=== PATIENT | male | born 1985 | race Two or more races ===

== ENCOUNTER 2024-05-14 09:15 | Emergency (ER) | payer OTHER, SELFPAY ==
--- NOTE | 2024-05-14 09:35 | XR_ITS ---
Examination: Knee, left , 3 views Technique: Knee AP, lateral, oblique 3 views Date and time of exam: May 14, 2024 0940 hrs. Indications: Injury to the knee today, knee pain Findings: No fracture or dislocation No foreign body Impression: No fracture or dislocation
--- NOTE | 2024-05-14 09:36 | PD.EDLOWEX ---
Lower Extremity Injury RME/HPI General Chief Complaint: Extremity Injury, Lower Stated Complaint: Left knee injury 1 month ago Time Seen by Provider: 05/14/24 09:21 Source: patient Arrival date/time: 05/14/24 09:15 38-year-old male with no known medical history presents to the emergency room with a chief complaint of tenderness to his left knee after an injury that occurred 3 weeks ago while working out on the fires. Mode of arrival: ambulatory Limitations: no limitations Related Data Allergies Allergy/AdvReac Type Severity Reaction Status Date / Time No Known Allergies Allergy Verified 05/14/24 09:18 Review of Systems Review of Systems Systems Reviewed: All systems reviewed, normal except as documented Constitutional Constitutional: Reports system reviewed and no additional complaints, except as documented, Denies fatigue, Denies fever(s), Denies headache(s) and Denies weakness Eyes Eyes: Reports system reviewed and no additional complaints, except as documented, Denies blurry vision and Denies change in vision ENT Ears, Nose, Mouth, and Throat: Reports system reviewed and no additional complaints, except as documented, Denies otalgia, Denies headache(s), Denies nasal congestion, Denies throat swelling and Denies vertigo Cardiovascular Cardiovascular: Reports system reviewed and no additional complaints, except as documented, Denies chest pain, Denies dyspnea and Denies dyspnea on exertion Respiratory Respiratory: Reports system reviewed and no additional complaints, except as documented, Denies chest congestion, Denies cough, Denies dyspnea, Denies dyspnea on exertion and Denies wheezing Gastrointestinal Gastrointestinal: Reports system reviewed and no additional complaints, except as documented, Denies abdominal pain, Denies cramping, Denies nausea and Denies vomiting Genitourinary Genitourinary: Reports system reviewed and no additional complaints, except as documented, Denies dysuria and Denies hematuria Musculoskeletal Musculoskeletal: Reports system reviewed and no additional complaints, except as documented, Reports arthralgias, Denies back pain and Reports joint swelling Integumentary/Breasts Skin/Breast: Reports system reviewed and no additional complaints, except as documented and Denies wounds Neurologic Neurologic: Reports system reviewed and no additional complaints, except as documented, Denies confusion, Denies headache(s), Denies lack of coordination, Denies vertigo and Denies weakness Psychiatric Psychiatric: Reports system reviewed and no additional complaints, except as documented, Denies anxiety, Denies confusion, Denies depression, Denies paranoia, Denies suicidal ideation and Denies tactile hallucinations Endocrine Endocrine: Reports system reviewed and no additional complaints, except as documented and Denies fatigue Hematologic/Lymphatic Hematologic/Lymphatic: Reports system reviewed and no additional complaints, except as documented and Denies lymphadenopathy Allergic/Immunologic Allergic/Immunologic: Reports system reviewed and no additional complaints, except as documented, Denies throat swelling, Denies urticaria and Denies wheezing ED Exam General Limitations: Present no limitations General appearance: Present alert and in no apparent distress Head Head exam: Present atraumatic Eye Eye exam: Present normal appearance, PERRL and EOMI ENT ENT exam: Present normal exam, normal oropharynx and mucous membranes moist Neck Neck exam: Present normal inspection, full ROM and trachea midline Chest Chest inspection: Present normal inspection and symmetric chest wall rise Respiratory Respiratory exam: Present normal lung sounds bilaterally Cardiovascular Cardiovascular exam: Present regular rate, normal rhythm and normal heart sounds Abdominal Exam Abdominal exam: Present soft and normal bowel sounds Extremities Exam Extremities exam: Present normal inspection and full ROM Expanded Lower Extremity Exam Hip/Pelvis exam: Present normal inspection Upper leg exam: Present normal inspection Knee exam: Present tenderness, swelling, effusion, pain with valgus and pain with varus; Absent full ROM Lower leg exam: Present normal inspection Ankle exam: Present normal inspection Foot/toe exam: Present normal inspection Neurovascular/Tendon exam: Present normal capillary refill Gait: observed and limited by pain Back Exam Back exam: Present normal inspection and full ROM Neurological Exam Neurological exam: Present alert, oriented X3 and CN II-XII intact Psychiatric Psychiatric exam: Present normal affect and normal mood Skin Skin exam: Present warm, dry, intact and normal color Course Quality Measures none Orders Category Date Time Status italo wrap [Splint / Immobilizer] STAT Care 05/14/24 09:35 Active XR knee LT 3V Stat Exams 05/14/24 09:35 Completed Vital Signs Vital signs: Vital Signs Temperature 98.2 F 05/14/24 09:39 Pulse Rate 71 05/14/24 09:39 Respiratory Rate 19 05/14/24 09:39 Blood Pressure 150/91 H 05/14/24 09:39 Pulse Oximetry (%) 98 05/14/24 09:39 Oxygen Delivery Method Room Air 05/14/24 09:39 O2 saturation within normal limits Extremity Injury, Lower MDM Narrative MDM Narrative:: 38-year-old male with no known medical history presents to the emergency room with a chief complaint of tenderness to his left knee after an injury that occurred 3 weeks ago while working out on the fires. Patient is hemodynamically stable and in no apparent distress Physical examination shows swelling and tenderness to the left knee. The patient is able to ambulate but states he has some pain when ambulating for long periods at times. Patient states this injury occurred 3 weeks ago the patient had a heel for couple of weeks and then went on a hike which at that point the patient states it was not properly healed. There is pain with varus and pain with valgus maneuvers. An x-ray of the left knee was completed and was negative for any acute fracture or dislocation. An Italo wrap was used to wrap it up. Patient was educated to follow-up with his Workmen's Comp. doctor for an outpatient MRI to check for any ligament damage or tears Patient was educated return to the emergency room for any evidence of worsening signs or symptoms Patient data External records reviewed:: [facility] previous records Clinical information provided by:: patient Social determinants that could affect healthcare access:: none Patient has the following chronic illnesses:: No chronic illness How is presenting disease/condition affected by chronic disease/condition?: no chronic disease Evaluation data The following diagnostics were reviewed and interpreted by me:: lab results and radiology exam(s) Lab and/or radiology exams considered but not ordered:: Labs and radiology exams considered and ordered Interpretation Summary: X-ray of the left knee- Medications / Prescriptions Medications or Prescriptions considered but not ordered:: No medication given Medication administrations:: No medication given Consultations Consultation(s) initiated? (list below): No Diagnosis Extremity Injury, Lower Differential Diagnosis: other (Left knee sprain/left knee fracture) Most likely diagnosis given after review of the tests above:: Left knee sprain Admission Indicated Admission indicated?: not indicated Admission Request Was there a request for admission?: No Disposition Plan Disposition Plan: Discharge Discharge Attestation Discharge Attestation: The patient and all family members were given an opportunity to ask questions and understood the discharge instructions. Discharge instructions specifically effects, indications for sooner follow up or return to the emergency department, and the expected course of current diagnosis. Patient condition: Stable Discharge Plan Plan Patient Disposition: HOME (Self Care) Disposition Comment: Stable Problem List Clinical Impression: Left knee sprain Patient/Caregiver Discharge Instructions Education Materials: ED ITALO Wrap, ED Knee Sprain Additional Instructions: Please follow-up with your Workmen's Comp. doctor in the next 24 to 48 hours. At this time your x-rays that were completed were negative for any acute fractures or dislocations. You will need an outpatient MRI to check for any ligament damage or tears For any evidence of worsening signs or symptoms please return to the emergency room immediately Print Language: Congolese Stand Alone Forms: Shaina Award Info., Patient Portal Info Letter PA/CONVEYOR BELT REPAIRER Supervising Physician PA/SEGUN Supervising Physician: Dr. Lanza
[2024-05-14 09:39] VITALS: BP 150/91; PULSE 71; RESP 19; TEMP 36.8; O2SAT 98; BMI 29.7
--- NOTE | 2024-05-14 10:06 | PC.NURSE ---
pt not wanting wrap will get knee brace
== END 2024-05-14 10:22 | disposition home or self-care (01) ==
PROVIDERS: Emergency Provider Emergency Medicine
DX: S83.92XA Sprain of unspecified site of left knee, initial encounter (principal); W19.XXXA Unspecified fall, initial encounter; Y93.89 Activity, other specified; Y99.0 Civilian activity done for income or pay
CPT/HCPCS: 73562; 99283